=== PATIENT | male | born 1990 | race Caucasian/White ===

== ENCOUNTER 2022-10-11 08:58 | Emergency (ER) | payer OTHER ==
[~2022-10-11] VITALS: Ht 172.7 cm; Wt 63.8 kg
[~2022-10-11 08:58] MED LIST: SEPTRA DS TABL1 EACH PO
[2022-10-11] MEDS ORDERED: ELIMITE60 GM TOP (09:16)
[2022-10-11 09:26] VITALS: BP 112/74
== END 2022-10-11 09:26 | disposition home or self-care (01) ==
LOC: ED 08:58
DX: B86 Scabies (principal); F17.200 Nicotine dependence, unspecified, uncomplicated; Z79.899 Other long term (current) drug therapy
CPT/HCPCS: 99282